=== PATIENT | female | born 1990 | race Caucasian/White ===

== ENCOUNTER 2016-12-06 21:01 | Emergency (ER) | payer SELFPAY ==
[~2016-12-06] VITALS: Ht 167.6 cm; Wt 68.0 kg
[2016-12-06 21:55] VITALS: BP 116/95
[2016-12-06] MEDS ORDERED: ONDANSETRON 4 MG TAB.RAPDIS SL ONE (23:30)
[2016-12-06] MEDS ORDERED: ONDANSETRON 4 MG TAB.RAPDIS ONE (23:37)
[2016-12-07] MEDS ORDERED: IBUPROFEN 400 MG TABLET ONE (00:22)
[2016-12-07] MEDS ORDERED: IBUPROFEN 400 MG TABLET PO ONE (01:00)
== END 2016-12-07 01:06 | disposition home or self-care (01) ==
LOC: ER 21:05
DX: S09.90XA Unspecified injury of head, initial encounter (principal); R51 Headache; V43.62XA Car passenger injured in collision with other type car in traffic accident, initial encounter; Y93.89 Activity, other specified; Y92.488 Other paved roadways as the place of occurrence of the external cause; Y99.8 Other external cause status
CPT/HCPCS: 70450-TC; 72125-TC; 84703-TC; A4606; Q0162; Z7610